=== PATIENT | female | born 1980 | race Caucasian/White ===

== ENCOUNTER 2024-11-07 10:05 | Day surgery (SDC) | payer BC, SELFPAY ==
[2024-11-07] VITALS (10 sets, daily range): BP systolic 121–155; BP diastolic 75–93; PULSE 80–99; RESP 12–20; TEMP 36.3–37.1; O2SAT 95–98; BMI 36.0
--- NOTE | 2024-11-07 10:43 | XR_ITS ---
Examination: Abdomen sonogram, Limited Date and time of exam: November 07, 2024 1114 hours INDICATIONS: Right upper abdominal pain beginning 2 days ago Technique: Real-time velasquez scale transabdominal sonographic images of the upper abdomen obtained. Findings: Multiple gallstones Gallbladder wall 0.8 cm with edema Common bile duct 0.6 cm Pancreatic head 2.8 cm Liver 17.1 cm smooth contour no focal liver lesions Normal hepatopedal portal venous flow Patent IVC IMPRESSION: Acute calculus cholecystitis Enlarged common bile duct 0.6 cm although no stones, consider MRCP follow-up to exclude common bile duct stones as clinically warranted
--- NOTE | 2024-11-07 10:43 | PD.EDRME ---
Rapid Medical Screening Exam RME Arrival date/time: 11/07/24 10:05 44-year-old female with no known medical history presents to the emergency room with a chief complaint of 10 out of 10 right upper quadrant abdominal pain and tenderness, nausea, vomiting x 2 days. I have greeted and performed a focused initial assessment of this patient. A comprehensive ED assessment and evaluation of the patient, analysis of all test results, and completion of the medical decision making process will be conducted by additional ED providers. Chief Complaint: Abdominal Pain Vital signs: Vital Signs Temperature 98.8 F 11/07/24 10:32 Pulse Rate 95 11/07/24 10:32 Respiratory Rate 18 11/07/24 10:32 Blood Pressure 121/84 11/07/24 10:32 Pulse Oximetry (%) 97 11/07/24 10:32 Oxygen Delivery Method Room Air 11/07/24 10:32 Vital signs reviewed by provider: Yes
[2024-11-07 11:20] LABS: Collection Type, Urine Clean Catch
[2024-11-07 11:21] LABS: Basophils % (Auto) 0 % (0-2.5); Eosinophils % (Auto) 0 % (0-10); Hematocrit 36.5 % (36.0-46.0); Hemoglobin 11.1 g/dL (12.0-16.0); Immature Granulocytes % (Auto) 0 % (0-0); Immature Granulocytes Auto 0.01 Thou/mm3 (0.00-0.00); Lymphocytes # (Auto) 1.5 Thou/mm3 (1.0-4.8); Lymphocytes % (Auto) 24 % (10-50); Mean Corpuscular HGB Conc 30.4 g/dl (31.0-37.0); Mean Corpuscular Volume 69 fL (80-100); Monocytes # (Auto) 0.8 Thou/mm3 (0.0-0.8); Monocytes % (Auto) 14 % (0-12); Neutrophils # (Auto) 3.8 Thou/mm3 (1.8-7.7); Neutrophils % (Auto) 62 % (37-80); Nucleated Red Blood Cell % 0 /100 WBC (0); Platelet Count 421 Thou/mm3 (140-440); Red Blood Count 5.28 Miln/mm3 (4.00-5.20); White Blood Count 6.1 Thou/mm3 (3.6-11.0)
[2024-11-07] MEDS: ONDANSETRON ODT 4 MG TABRAP PO (11:36)
[2024-11-07] MEDS: HYDROcodone/APAP 5/325 TABLET 1 TAB PO (11:36)
[2024-11-07 11:40] LABS: Bilirubin,Urine Negative (Negative); Blood,Urine 3+ (Negative); Clarity,Urine Clear (Clear/Hazy); Color,Urine Yellow (Lt Yel-Yel); Glucose, Urine Negative (Negative); HCG Qualitative,Urine Negative; Ketones,Urine 1+ (Negative); Leukocyte Esterase,Urine Negative (Negative); Nitrite,Urine Negative (Negative); PH,Urine 5.5 (5.0-7.0); Protein,Urine Trace (Neg - Trace); RBC,Urine 51 /hpf (0-3); Specific Gravity,Urine 1.021 (1.001-1.035); Squamous Epithelial Cell,Urine < 1 /hpf (0-5); Urobilinogen,Urine Negative mg/dL (0.0-1.0); WBC,Urine 4 /hpf (0-5)
[2024-11-07 11:43] LABS: Alanine Aminotransferase 16 U/L (10-49); Albumin, Serum 4.6 gm/dL (3.5-5.0); Albumin/Globulin Ratio 1.6 (1.2-2.2); Alkaline Phosphatase 126 U/L (46-116); Anion Gap 8 (7-16); Aspartate Amino Transferase 16 U/L (0-34); BUN/Creatinine Ratio 9 Ratio (12-20); Bilirubin,Total 0.6 mg/dL (0.3-1.2); Blood Urea Nitrogen 6 mg/dL (9-23); Calcium 9.7 mg/dL (8.3-10.6); Calcium (Corrected) 9.7 mg/dL (8.5-10.1); Carbon Dioxide 26.2 mMol/L (20.0-31.0); Chloride 106 mMol/L (98-107); Creatinine (Component) 0.7 mg/dL (0.6-1.3); Estimated Creatinine Clearance 124.7 mL/min (>60); Globulin 2.8 gm/dL (2.3-3.5); Glucose 121 mg/dL (74-106); Lipase 26 U/L (12-53); Osmolality,Calculated 278 (275-295); Potassium 3.3 mMol/L (3.4-5.1); Sodium 140 mMol/L (136-145); Total Protein 7.4 gm/dL (5.7-8.2); eGFR > 60 See Note
[2024-11-07 12:14] LABS: Path Review Blood Smear Sent to Pathologist
--- NOTE | 2024-11-07 12:44 | EDNOTE_ITS ---
<Statement entered by Tiana Bennett MD - 11/07/24 17:31> As co-signing physician, I was present and available for consult prn. I concur with the plan and care as documented by the midlevel provider. ED Abdominal Pain RME/HPI General Chief Complaint: Abdominal Pain Stated complaint: ABD PAIN/ BACK PAIN Time seen by provider: 11/07/24 12:36 Arrival date/time: 11/07/24 10:05 RME / HPI RME / HPI narrative: 44-year-old female patient with no known medical history except for gastric sleeve and gastric bypass, came in for evaluation regarding right upper quadrant pain. Patient has been having on and off right upper quadrant pain but today pain is getting worse, severity 10 out of 10 radiating to the back. Associated with nausea and vomiting. Patient denies any fever. Denies any other complaints no medication was taken prior travel. Related Data Allergies Allergy/AdvReac Type Severity Reaction Status Date / Time clindamycin Allergy Mild RASH, GI Verified 11/07/24 10:06 UPSET Review of Systems Review of Systems Narrative Review of Systems: Review of system reviewed and within normal limits except mentioned in HPI ED Exam Narrative Physical exam: VITAL SIGNS: Reviewed. GENERAL APPEARANCE: Alert and interactive, follows commands, no acute distress, HEAD AND FACE: Non-traumatic. ENT: PERRL, pink conjunctivitis, eyelid no trauma, Mucous membrane moist. NECK: Supple, nontender, no nuchal rigidity. CHEST: No tenderness, no crepitus, no paradoxical movement, no retractions. LUNGS: Clear, well ventilated, symmetric, no rales, no wheezing, no ronchi, no stridor, good breath sounds bilaterally. HEART: Regular rate, regular rhythm, no murmur, no gallops. ABDOMEN: Soft, positive bowel sounds, nondistended, no guarding, right upper quadrant tenderness no rebound, no masses, RECTAL: Deferred. GENITAL: Deferred. NEUROLOGICAL: Gross motor function intact sensory function intact, Appropriate for age. MUSCULOSKELETAL: low back nontender, full range of motion. EXTREMITIES: Nontender, full range of motion. SKIN: Color pink, dry, no rash, no lacerations, no abrasions, no contusions. LYMPHATICS: Deferred. Course Quality Measures none Orders Category Date Time Status Patient Condition Routine Admission 11/07/24 13:[address] in Surgical Day Care Routine Admission 11/07/24 13:19 Active Activity as Tolerated Routine Care 11/07/24 13:19 Ordered COVID-19 Screening Questionnaire NOW Care 11/07/24 13:18 Active Decision to Admit X1 Care 11/07/24 13:18 Active Insert IV NOW Care 11/07/24 13:19 Active Obtain Written Consent For: NOW Care 11/07/24 13:19 Active US gall bladder Stat Exams 11/07/24 10:43 Completed CBC Stat Lab 11/07/24 11:02 Completed CMP [Comprehensive Metabolic Panel] Stat Lab 11/07/24 11:02 Completed HCG Qualitative,Urine Stat Lab 11/07/24 11:05 Completed Lipase Stat Lab 11/07/24 11:02 Completed Path Review Blood Smear Stat Lab 11/07/24 11:02 Completed UA [Urinalysis] Stat Lab 11/07/24 11:05 Completed Urine Culture Stat Lab 11/07/24 11:05 Received HYDROcodone*/APAP 5/325 [[place] 5/325] Med 11/07/24 10:43 Discontinued 1 tab PO X1 ONE Morphine Inj Med 11/07/24 14:37 Discontinued 4 mg IVP X1 ONE Ondansetron Odt [Zofran Odt] Med 11/07/24 10:43 Discontinued 4 mg PO X1 ONE Sodium Chloride 0.9% 1000 ml [Ns] 1,000 ml Med 11/07/24 13:30 Active IV 100 mls/hr Code Status Routine Oth 11/07/24 13:19 Ordered Vital Signs Vital signs: Vital Signs Temperature 98.8 F 11/07/24 10:32 Pulse Rate 95 11/07/24 10:32 Respiratory Rate 18 11/07/24 10:32 Blood Pressure 121/84 11/07/24 10:32 Pulse Oximetry (%) 97 11/07/24 10:32 Oxygen Delivery Method Room Air 11/07/24 10:32 Abdominal Pain MDM MDM Narrative MDM Narrative:: 44-year-old female patient with no known medical history except for gastric sleeve and gastric bypass, came in for evaluation regarding right upper quadrant pain. Patient has been having on and off right upper quadrant pain but today pain is getting worse, severity 10 out of 10 radiating to the back. Associated with nausea and vomiting. Patient denies any fever. Denies any other complaints no medication was taken prior travel. Ultrasound of the gallbladder showed acute calculus cholecystitis. Workup came back unremarkable no leukocytosis, LFTs are normal total bili is normal. Patient was given [place] and Zofran with mild improvement of pain I spoke with general surgeon on-call, Dr. Romo, who will examine the patient in the emergency room Dr Jones admitted the patient for surgery today Patient data External records reviewed:: None Clinical information provided by:: patient Social determinants that could affect healthcare access:: none Patient has the following chronic illnesses:: None How is presenting disease/condition affected by chronic disease/condition?: no chronic disease Evaluation data The following diagnostics were reviewed and interpreted by me:: lab results and radiology exam(s) Lab and/or radiology exams considered but not ordered:: None Interpretation Summary: See results in MDM Medications / Prescriptions Medications or Prescriptions considered but not ordered:: None Medication administrations:: Medication Administration History Sodium Chloride (Ns) 1,000 mls @ 100 mls/hr IV .Q10H KENNETH Stop: 12/07/24 13:29 Last Admin: 11/07/24 14:32 Dose: 100 mls/hr Documented By: EG Discontinued Medications Hydrocodone Bitart/Acetaminophen (Hydrocodone/Apap 5/325 Tablet) 1 tab PO X1 ONE Stop: 11/07/24 10:44 Last Admin: 11/07/24 11:36 Dose: 1 tab Documented By: BEAU Morphine Sulfate (Morphine Sulf Inj 10 Mg/Ml Vial) 4 mg IVP X1 ONE Stop: 11/07/24 14:38 Ondansetron HCl (Ondansetron Odt 4 Mg Tabrap) 4 mg PO X1 ONE; Protocol Stop: 11/07/24 10:44 Last Admin: 11/07/24 11:36 Dose: 4 mg Documented By: BEAU Morphine Zofran IV fluids and [place] Consultations Consultation(s) initiated? (list below): No Diagnosis Differential diagnosis abdominal pain: abdominal pain and diverticulitis Most likely diagnosis given after review of the tests above:: Acute calculus cholecystitis Admission Indicated Admission indicated?: indicated Admission Request Was there a request for admission?: Yes Admission Attestation Admission request attestation: Dr Jones agrees to accept the patient for admission. Disposition Plan Disposition Plan: Admit Discharge Plan Plan Patient Disposition: Admit Acute Care w/in Hospital Disposition Comment: stable Problem List Clinical Impression: Acute calculous cholecystitis Patient/Caregiver Discharge Instructions Print Language: [place] Stand Alone Forms: Desirae Award Info., Patient Portal Info Letter
[2024-11-07] MEDS: SODIUM CHLORIDE 0.9% 1000 ML 1,000 ML 100 ML IV ×2 (14:32→20:19)
[2024-11-07] MEDS: MORPHINE SULF INJ 10 MG/ML VIAL 4 MG IVP (14:46)
[2024-11-07] MEDS: ONDANSETRON INJ 2 MG/ML INJ 2 ML 4 MG IV (16:21)
--- NOTE | 2024-11-07 16:36 | PD.SURHP ---
HPI Date of Admission 11/07/2024 Chief Complaint Chief Complaint: Patient is admitted with acute cholecystitis and cholelithiasis HPI History of present illness revealed that the patient was having abdominal pain ever since Tuesday night the pain persisted. She has not eaten well and she is not slept well she has had some nausea and vomiting. Because of the persistent pain she came to the emergency room and was found to have gallstones and thickening of the gallbladder wall. Patient did not know that she had gallstones. She has had a weight reduction surgery with lap band about 15 years ago and she lost weight all the way down to 150 pounds but she has gained it. The Lap-Band was removed and she underwent sleeve resection 3 years ago in [place]. But she has not lost significant weight. She has been having vague upper abdominal pain intermittently occurring once and every 2 or 3 months. But this pain was severe and therefore she had to come to the hospital. She denies history of jaundice fever or chills. She denies any major medical illness Past Medical History Past Medical History NEUROLOGIC: Negative Cerebrovascular Accident or Seizures CARDIAC: Positive Hypercholesterolemia; Negative Congestive Heart Failure or Hypertension RESPIRATORY: Positive Asthma and Bronchitis; Negative Chronic Obstructive Pulmonary Disease (COPD) or Sleep Apnea GASTROINTESTINAL: Positive Gall Bladder Disease (11/07/2024), Hiatal Hernia and Gastroesophageal Reflux Disease GENITOURINARY: Negative Genitourinary Disorders or Renal Disease REPRODUCTIVE: Negative Pelvic Inflammatory Disease MUSCULOSKELETAL: Negative Musculoskeletal Disorders ENT: Negative History of ENT Problems ENDOCRINE: Negative Diabetes Mellitus Type 1, Diabetes Mellitus Type 2 or Hyperthyroidism HEMATOLOGIC: Positive Anemia PSYCHO/SOCIAL: Positive Depression, Anxiety and Post Traumatic Stress Disorder OTHER HISTORY: Negative Falls, Blood Transfusions or Cancer Surgical History SURGICAL: Positive Nose Surgery (sinus surgery), Tonsillectomy (residual tonsillectomy) and Gastric Bypass Surgery; Negative Cardiac Surgery, Joint Replacement, Mastectomy, Tubal Ligation or Section Social History SMOKING STATUS: Never smoker Meds Home Medications and Allergies Allergies Allergy/AdvReac Type Severity Reaction Status Date / Time clindamycin Allergy Mild RASH, GI Verified 11/07/24 10:06 UPSET Exam Vital Signs Temp Pulse Resp BP Pulse Ox O2 Del Method 98.3 F 80 12 135/84 H 98 Room Air 11/07/24 13:48 11/07/24 13:48 11/07/24 13:48 11/07/24 13:48 11/07/24 13:48 11/07/24 13:48 Narrative Exam Physical examination revealed obese white female who is 5 foot 7 inches tall weighing 230 pounds with BMI of 36 Constitutional Constitutional: moderate distress Routine Cardiovascular Exam Comments: Sinus rhythm Routine Abdominal Exam Comments: Examination of the abdomen showed multiple surgical scar in the upper abdomen due to laparoscopic surgery in the past with a sleeve resection and lap band. Patient had a definite tenderness on the right upper quadrant on deep palpation Routine Rectal Exam Comments: Deferred Routine Exam Comments: Deferred Results Results: Laboratory Laboratory Narrative: Patient's laboratory Is within normal limits Results: Imaging Imaging narrative: Ultrasound showed multiple gallstones with thickening of the gallbladder wall suggesting acute cholecystitis Assessment & Plan Additional Assessment Additional comments: Impression acute calculus cholecystitis Morbid obesity Status post weight reduction surgery Plan Plan: Since the patient has had persistent pain since Tuesday I advised her to undergo laparoscopic cholecystectomy. She was told about the difficulty in doing laparoscopic surgery if time passes beyond 3 or 4 days. Patient also was told that because of the adhesions that may exist from the previous surgery she may require open cholecystectomy. The major complication of surgery including common bile duct injury which may require transfer to another institution was discussed with her. She is agreeable. Quality Measures Quality Measures none
--- NOTE | 2024-11-07 18:28 | PD.SUROPNT ---
Date of Procedure 11/07/24 Pre Op Diagnosis Acute calculus cholecystitis Post Op Diagnosis Same Procedure Laparoscopic cholecystectomy Findings Patient was found to have a considerable edema of the gallbladder with swelling due to acute cholecystitis and she had multiple gallstones Procedure Description After endotracheal anesthesia was given the patient was placed in supine position and the abdomen was prepped with chloroprep solution and draped in a sterile manner. After time out was performed I injected a few cc of of half percent Marcaine with epinephrine below the umbilicus and I made an incision for about 3 cm in length. The fascia was cleaned and Veress needle was inserted to create a pneumoperitoneum up to 15 mmHg. Then introduced a 12 mm trocar and a 10 mm camera through the fascia and I inspected the intra-abdominal organs as well as the gallbladder and the liver. Another 5 mm trocar was inserted in the epigastric region under direct vision after injecting some local anesthesia. At this time the patient was kept in reverse Trendelenburg position with the left lateral tilt. The third 5 mm trocar was inserted over the mid axillary line under direct vision and a Dimitrios and Russel grasper was used to hold the fundus of the gallbladder. The retraction was carried out by the office administrative assistant moving the fundus of the gallbladder towards the right shoulder of the patient to create enough traction. The gallbladder was found to be very distended with fluid surrounding the gallbladder due to inflammation. I placed a another 5 mm trocar in the midaxillary line just lateral to the rectus muscle under direct vision. I used a fenestrated grasper to retract the neck of the gallbladder laterally towards the patient's right hip. The Calot's triangle was exposed and I achieved the critical view of safety as follows: I dissected out the fatty tissue from the hepatocystic triangle and cleared this area. I also dissected inferior and posterior to the gallbladder to identify the cystic duct and the gallbladder wall. Then superiorly I dissected along the cystic plate up to lower one third third of the gallbladder to lift the gallbladder from the liver. At this time I confirmed that only 2 structures entering the gallbladder were cystic artery and the cystic duct. The common duct was seen distally but no dissection was carried out around the duct. I did not see any need for operative cholangiogram in this patient. The cystic duct was clipped doubly and then divided and cystic artery was similarly dealt with. Then the gallbladder was removed from the liver bed using Harmonic doroteo to control the small blood vessels as the dissection proceeded. Then the gallbladder was from the liver bed completely and delivered through the umbilical port using an Endopouch. The liver bed was coagulated with cautery to obtain satisfactory hemostasis. The trocars were pulled out from the abdominal cavity and the fascia at the umbilical incision was closed with interrupted 0 Ethibond. Subcutaneous tissues was closed with 3-0 chromic and injected a few cc of half percent Marcaine with epinephrine and the skin was closed with interrupted 4-0 nylon stitches at all the trocar sites. Dressing was applied with 2 x 2 and Tegaderm. Patient tolerated the procedure well and returned to recovery room in stable condition. Anesthesia GETA Pathology / specimen Other (Gallbladder and the stones) IVF Infused 400 Estimated Blood Loss 30 Condition Stable Disposition PACU Surgeon Renee Jonse MD Surgical Staff Operation Date: 11/07/24 15:45 Case Staff TRACK HELPER: Tye Winn RNdirector of elementary education: Edelmira Li
--- NOTE | 2024-11-07 18:37 | SUR.PHASEI ---
183 Patient arrived to recovery resting comfortably in [facility], on oxygen 8L via oxy mask, breathing unlabored, vital signs stable, denies pain, dressing intact to abdomen; dissolvable sutures, gauze, tegaderm, no bleeding noted, lung sounds clear upon auscultation, bilateral radial pulses present when palpated, report received from Lauren HUYNH and Tye DE JESUS
--- NOTE | 2024-11-07 19:01 | SUR.PHASEI ---
called patient to notify him that his is doing well in recovery and MD will be keeping her overnight for observation, all questioned answered
--- NOTE | 2024-11-07 19:28 | SUR.PHASEII ---
patient eating ice chips; tolerating well
--- NOTE | 2024-11-07 19:51 | SUR.PHASEII ---
1944 Report given to Jesus Alberto HUYNH, patient meets discharge criteria from recovery, awake and talking with staff, on oxygen 2L via nasal cannula, breathing unlabored, vital signs stable, denies pain, dressing intact; no bleeding noted, patient eating ice chips; tolerating well, denies nausea, patient notified per patients [facility] room number. 1950 Patient transported via rney to room 354 without incident, patient able to ambulate from rney to bed with standby assist from this group underwriter, Jesus Alberto HUYNH and COMMUNITY ORGANIZER promptly in patients room, patient is bed with staff at bedside when this group underwriter left patients room
[2024-11-07] MEDS: ceFAZolin/D5W 2 GM IV 2 GM/100 ML BAG IV (20:54)
[2024-11-07] MEDS: KETOROLAC INJ 30 MG/ML VIAL IVP (20:54)
[2024-11-07] MEDS: MORPHINE SULF INJ 10 MG/ML VIAL 5 MG IVP (23:32)
[2024-11-08] VITALS: BP 123/75; PULSE 82; RESP 18; TEMP 36.1; O2SAT 98
[2024-11-08 04:00] VITALS: BP 113/66; PULSE 74; RESP 18; TEMP 36.4; O2SAT 97
[2024-11-08] MEDS: KETOROLAC INJ 30 MG/ML VIAL IVP ×2 (04:31→10:59)
[2024-11-08] MEDS: ceFAZolin/D5W 2 GM IV 2 GM/100 ML BAG IV ×2 (05:19→13:02)
[2024-11-08 06:05] LABS: Basophils % (Auto) 0 % (0-2.5); Eosinophils % (Auto) 0 % (0-10); Hematocrit 31.8 % (36.0-46.0); Hemoglobin 9.6 g/dL (12.0-16.0); Immature Granulocytes % (Auto) 0 % (0-0); Immature Granulocytes Auto 0.01 Thou/mm3 (0.00-0.00); Lymphocytes # (Auto) 0.8 Thou/mm3 (1.0-4.8); Lymphocytes % (Auto) 16 % (10-50); Mean Corpuscular HGB Conc 30.2 g/dl (31.0-37.0); Mean Corpuscular Hemoglobin 21.3 pg (25.0-35.0); Mean Corpuscular Volume 71 fL (80-100); Monocytes # (Auto) 0.6 Thou/mm3 (0.0-0.8); Monocytes % (Auto) 13 % (0-12); Neutrophils # (Auto) 3.4 Thou/mm3 (1.8-7.7); Neutrophils % (Auto) 71 % (37-80); Nucleated Red Blood Cell % 0 /100 WBC (0); Platelet Count 354 Thou/mm3 (140-440); RDW Standard Deviation 44.1 fL (36.4-46.3); Red Blood Count 4.51 Miln/mm3 (4.00-5.20); White Blood Count 4.8 Thou/mm3 (3.6-11.0)
[2024-11-08 06:40] LABS: Alanine Aminotransferase 24 U/L (10-49); Alkaline Phosphatase 103 U/L (46-116); Aspartate Amino Transferase 31 U/L (0-34); Bilirubin,Direct 0.1 mg/dL (0.0-0.3); Bilirubin,Total 0.3 mg/dL (0.3-1.2); Total Protein 6.5 gm/dL (5.7-8.2)
[2024-11-08] MEDS: MORPHINE SULF INJ 10 MG/ML VIAL 5 MG IVP ×3 (07:38→16:26)
[2024-11-08 08:00] VITALS: BP 116/70; PULSE 76; RESP 18; TEMP 36.1; O2SAT 99
[2024-11-08] MEDS: SODIUM CHLORIDE 0.9% 1000 ML 1,000 ML 100 ML IV (08:57)
[2024-11-08 09:08] VITALS: PULSE 76; RESP 18; O2SAT 99
[2024-11-08 12:00] VITALS: BP 122/75; PULSE 75; RESP 18; TEMP 36.2; O2SAT 98
--- NOTE | 2024-11-08 15:30 | PC.SS ---
SS met with patient regarding her d/c plan.? Pt is alert/oriented.? Pt was admitted for Acute Calculus Cholecystitis.? Pt confirmed demographic and contact information is correct on facesheet.? Pt resides with .? Pt is employed part time flexible clerk.? Pt ambulates independently without assistance or DME.? Pt is ok with all ADLs.? Patient?s pharmacy of choice is [facility] [address] Pt is currently on 2 liters of O2.? Pt does not use O2 at home.? Pt named her , Chinmay Harvey medical decision maker if she is unable.? Patient?s choice is to return home upon d/c.? Pt states not diabetic and is not on dialysis.? Pt states she last followed up with PCP yesterday before being hospitalized. D/C plan:? Return home Next of Kin:? Chinmay Harvey, , phone# [phone] PCP:? Dr. Riya Bar Address:? Correct on facesheet
[2024-11-08 16:00] VITALS: BP 124/76; PULSE 89; RESP 16; TEMP 36.2; O2SAT 92
== END 2024-11-08 17:15 | disposition home or self-care (01) ==
LOC: SERX 14:59 → S2EX 15:51 → S3NX 11-08 07:30
PROVIDERS: Nurse Practitioner Family; Emergency Provider Emergency Medicine; Referring Provider Surgery; Visit Provider Surgery
PROC: 0FT44ZZ Resection of Gallbladder, Percutaneous Endoscopic Approach (ICD-10-PCS; CPT 47562; principal; 2024-11-07 15:30)
DX: K80.12 Calculus of gallbladder with acute and chronic cholecystitis without obstruction (principal); E66.01 Morbid (severe) obesity due to excess calories; E78.00 Pure hypercholesterolemia, unspecified; G47.30 Sleep apnea, unspecified; J45.909 Unspecified asthma, uncomplicated; K21.9 Gastro-esophageal reflux disease without esophagitis; Z68.36 Body mass index [BMI] 36.0-36.9, adult; Z98.84 Bariatric surgery status
CPT/HCPCS: 47562; 36415; 76705; 80053; 80076; 81001; 81025; 83690; 85025; 87086; 94664; 96361; 96374; 99285; A4217; A4649; J0131; J0689; J0690; J1100; J1885; J2250; J2270; J2405; J2704; J2765; J3010; J3490; J7030; Q0162; A9270

== ENCOUNTER → 2025-09-25 | Outpatient (CLI) | payer BC, SELFPAY ==
--- NOTE | 2025-09-25 12:46 | XR_ITS ---
Study: Chest 2 view INDICATION: Cough and shortness of breath for 1 1/2 weeks. Absent improvement on antibiotics. FINDINGS: PA and lateral upright chest radiographs demonstrate fully expanded lungs free of [place] or infiltrates or nodules. There are no effusions. Mediastinal structures are narrow and peripheral vessels are normal in distribution. The subglottic fold is normal in appearance. IMPRESSION: No acute diagnostic abnormality.
== END | disposition home or self-care (01) ==
PROVIDERS: PCP Family Medicine; Referring Provider Internal Medicine; Visit Provider Internal Medicine
DX: R05.9 Cough, unspecified (principal); R06.02 Shortness of breath
CPT/HCPCS: 71046